=== PATIENT | female | born 1955 | race Caucasian/White ===

== ENCOUNTER 2023-10-20 06:19 | Day surgery (SDC) | payer MEDICARE, OTHER, SELFPAY ==
[2023-10-11 14:22] VITALS: BMI 33.2
[2023-10-20] VITALS (8 sets, daily range): BP systolic 118–158; BP diastolic 67–95; BMI 33.2
[2023-10-20] MEDS: CELEBREX 200 MG PO (09:14)
[2023-10-20] MEDS: TYLENOL 1000 MG PO (09:15)
[2023-10-20] MEDS: NORMOSOL-R 1000 IV (09:17)
== END 2023-10-20 14:09 | disposition home or self-care (01) ==
LOC: SDS 06:19
PROVIDERS: ATTENDING PHYSICIAN Specialist
DX: S83.232A Complex tear of medial meniscus, current injury, left knee, initial encounter (principal); S83.282A Other tear of lateral meniscus, current injury, left knee, initial encounter; X58.XXXA Exposure to other specified factors, initial encounter
CPT/HCPCS: 29880